=== PATIENT | female | born 1950 | race Caucasian/White ===

== ENCOUNTER → 2016-11-23 17:31 | Outpatient (CLI) | payer OTHER ==
[2015-04-16 15:49] VITALS: BMI 19.9
[~2016-11-23 17:31] MED LIST: COREG 3.1253.125 MG PO; COREG 3.1253.125 MG POINH; LISINOPRIL5 MG PO; MOBIC7.5 MG PO; PROZAC10 MG PO; SYNTHROID125 MCG PO; ULTRAM50 MG PO
== END | disposition home or self-care (01) ==
LOC: D.MAMMO 14:30
DX: Z12.31 Encounter for screening mammogram for malignant neoplasm of breast (principal)

== ENCOUNTER → 2018-06-09 19:00 | Outpatient (CLI) | payer MEDICARE ==
[2015-04-16 15:49] VITALS: BMI 19.9
== END | disposition home or self-care (01) ==
LOC: D.MAMMO 16:00
DX: Z12.31 Encounter for screening mammogram for malignant neoplasm of breast (principal)

== ENCOUNTER → 2019-10-23 12:51 | Outpatient (CLI) | payer MEDICARE, BC ==
[2015-04-16 15:49] VITALS: BMI 19.9
== END | disposition home or self-care (01) ==
LOC: D.HCCECHO 10-15 10:00
PROVIDERS: ATTEND Internal Medicine Cardiovascular Disease
DX: I42.9 Cardiomyopathy, unspecified (principal)